=== PATIENT | male | born 1985 | race Hispanic/Latino ===

== ENCOUNTER 2023-02-17 10:35 | Emergency (ER) | payer OTHER ==
[~2023-02-17] VITALS: Ht 170.2 cm; Wt 124.7 kg
[2023-02-17] MEDS ORDERED: TETRACAINE HCL 0.5% 4 ML OPHTH SOLN ONE (10:54)
[2023-02-17 11:00] VITALS: BP 179/91; PULSE 80; RESP 16; O2SAT 98
== END 2023-02-17 11:14 | disposition home or self-care (01) ==
LOC: EDH 10:35
DX: H57.8A2 Foreign body sensation, left eye (principal)
CPT/HCPCS: 99281